=== PATIENT | male | born 1995 | race Caucasian/White ===

== ENCOUNTER 2023-09-15 02:51 | Emergency (ER) | payer SELFPAY ==
[~2023-09-15] VITALS: Ht 172.7 cm; Wt 68.0 kg
[2023-09-15 03:06] VITALS: BP_SYST 110; PULSE 67; RESP 16; TEMP 97.9; O2SAT 99
[2023-09-15] MEDS ORDERED: ONDANSETRON HCL 4 MG/2 ML VIAL IVP ONE ×2 (03:15→03:30)
[2023-09-15] MEDS ORDERED: NACL 0.9% 1,000 ML IV ONE (03:15)
[2023-09-15 03:47] LABS: ALBUMIN 4.1 g/dL (3.4-4.8); BASOPHILS % (AUTO) 0.7 % (0.0-2.0); CREATININE 0.75 mg/dL (0.55-1.30); EOSINOPHILS # (AUTO) 0.1 K/uL (0.0-0.4); EOSINOPHILS % (AUTO) 1.7 % (0.0-4.0); HEMATOCRIT 41.1 % (36-54); HEMOGLOBIN 13.7 g/dL (14.0-18.0); LYMPHOCYTES # (AUTO) 1.8 K/uL (1.0-5.5); LYMPHOCYTES % (AUTO) 29.6 % (20.5-51.5); MEAN CORPUSCULAR HEMOGLOBIN 30 pg (27-31); MEAN CORPUSCULAR HGB CONC 33 % (32-36); MEAN CORPUSCULAR VOLUME 90 fL (79.0-98.0); MONOCYTES # (AUTO) 0.4 K/uL (0.0-1.0); MONOCYTES % (AUTO) 7.5 % (1.7-9.3); NEUTROPHILS # (AUTO) 3.6 K/uL (1.8-7.7); NEUTROPHILS % (AUTO) 60.5 % (40.0-70.0); PLATELET COUNT (AUTO) 257 K/uL (130-430); POTASSIUM 3.7 mmol/L (3.5-5.1); RED BLOOD CELL COUNT(AUTO) 4.57 MIL/uL (4.2-6.2); RED CELL DISTRIBUTION WIDTH 14.1 % (9.0-15.0); TOTAL BILIRUBIN 0.4 mg/dL (0.0-1.0); TOTAL PROTEIN, SERUM 7.2 g/dL (6.4-8.3); WHITE BLOOD COUNT (AUTO) 5.9 K/uL (4.8-10.8)
[2023-09-15] MEDS ORDERED: ONDA-8 TL (05:03)
[2023-09-15 05:13] VITALS: BP_SYST 108; PULSE 74; RESP 18; TEMP 97.8; O2SAT 96
== END 2023-09-15 05:13 | disposition home or self-care (01) ==
LOC: SED 02:51
DX: F10.129 Alcohol abuse with intoxication, unspecified (principal); R11.10 Vomiting, unspecified; Z79.899 Other long term (current) drug therapy; Y90.6 Blood alcohol level of 120-199 mg/100 ml
CPT/HCPCS: 99283; 96374; 96361; 80053; 82962; 83690; 85025; 36415; G0482; J2405; J7030